=== PATIENT | female | born 1980 | race Caucasian/White ===

== ENCOUNTER 2017-07-08 19:34 | Emergency (ER) | payer BC ==
[2017-07-08 19:45] VITALS: O2SAT 95
[2017-07-08] MEDS ORDERED: NS 1,000 ML IV ONE (19:47)
[2017-07-08] MEDS ORDERED: KETOROLAC 30 MG/1 ML SDV IVP ONE (19:50)
[2017-07-08] MEDS ORDERED: DEXAMETHASONE 10 MG/ML VIAL IVP ONE (19:50)
[2017-07-08] MEDS ORDERED: METOCLOPRAMIDE 10 MG/2 ML VIAL IVP ONE (19:50)
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
[2017-07-08 21:19] VITALS: BP 122/69; PULSE 67; RESP 16; TEMP 98.1
== END 2017-07-08 21:10 | disposition home or self-care (01) ==
LOC: CED 19:34
DX: R51 Headache (principal); E86.9 Volume depletion, unspecified
CPT/HCPCS: 96374; J1100; J1200; J1885; J2765

== ENCOUNTER 2018-07-26 19:55 | Emergency (ER) | payer OTHER ==
[2018-07-26] MEDS ORDERED: METOCLOPRAMIDE 10 MG/2 ML VIAL IVP ONE (20:34)
[2018-07-26] MEDS ORDERED: NS 1,000 ML IV ONE (20:34)
[2018-07-26] MEDS ORDERED: DEXAMETHASONE 10 MG/ML VIAL IVP ONE (20:34)
[2018-07-26] MEDS ORDERED: KETOROLAC 30 MG/1 ML SDV IVP ONE (20:34)
--- NOTE | 2018-07-26 20:57 | EDPHY ---
H & P Time Seen by Provider: 07/26/18 20:04 HPI/ROS: CHIEF COMPLAINT: Headache History by patient HISTORY OF PRESENT ILLNESS: 37-year-old woman with history of chronic migraines presents complaining of ongoing severe migraine headache for the past 10 days. Patient states she has tried all her usual medications including ibuprofen and Excedrin migraine and her preventive medication without relief. It is associated with nausea but no vomiting. It is associated with photophobia. It is similar in nature to her previous migraines. She says she gets these very frequently but usually respond her medications at home, though occasionally she has to go to the ER for them. She is followed by a neurologist for these headaches. REVIEW OF SYSTEMS: As in HPI, and all other systems reviewed and are negative Smoking Status: Never smoked Physical Exam: General Appearance: Alert, nontoxic appearing, lying in a darkened room. Head: normocephalic, atraumatic Eyes: Pupils equal and round, reactive to light, no pallor or injection. Mouth: Mucous membranes moist. Respiratory: Normal, effort, lungs are clear to auscultation. No wheezes, rales or rhonchi. Cardiovascular: Regular rate and rhythm. S1, S2, no murmurs, gallops or rubs appreciated Gastrointestinal: Abdomen is soft and nontender, no masses, bowel sounds normal. Back: No CVA tenderness, no bony tenderness Neurological: Awake, alert and oriented x 3, cranial nerves 2 through 12 intact , no pronator drift, normal gait, DTRs 2+ and equal bilaterally, sensation equal bilaterally Skin: Warm and dry, no rashes. Musculoskeletal: No deformities or tenderness. Extremities: full range of motion, no edema, DP2+ bilat Psychiatric: Patient has normal affect, there is no agitation. Constitutional: Initial Vital Signs Temperature (C) 37.0 C 07/26/18 20:08 Heart Rate 67 07/26/18 20:08 Respiratory Rate 18 07/26/18 20:08 Blood Pressure 114/75 07/26/18 20:08 O2 Sat (%) 99 07/26/18 20:08 O2 Delivery Mode Room Air Allergies/Adverse Reactions: No Known Allergies Allergy (Verified 07/26/18 20:07) Home Medications: Medication Instructions Recorded Lexapro 07/08/17 Trokendi Xr 07/26/18 MDM/Departure - MDM Medications Given: Discontinued Medications Dexamethasone (Decadron Injection) 10 mg IVP EDNOW ONE Stop: 07/26/18 20:35 Last Admin: 07/26/18 20:40 Dose: 10 mg Diphenhydramine HCl (Benadryl Injection) 25 mg IVP EDNOW ONE Stop: 07/26/18 20:35 Last Admin: 07/26/18 20:40 Dose: 25 mg Sodium Chloride (Ns) 1,000 mls @ 0 mls/hr IV ONCE ONE; Wide Open PRN Reason: Protocol Stop: 07/26/18 20:35 Last Admin: 07/26/18 20:40 Dose: 1,000 mls Ketorolac Tromethamine (Toradol) 15 mg IVP EDNOW ONE Stop: 07/26/18 20:35 Last Admin: 07/26/18 20:40 Dose: 15 mg Metoclopramide HCl (Reglan Injection) 10 mg IVP EDNOW ONE Stop: 07/26/18 20:35 Last Admin: 07/26/18 20:40 Dose: 10 mg ED Course/Re-evaluation: 37-year-old woman with history of migraines presents with ongoing typical migraine for her. Patient was given IV fluids, Benadryl Reglan dexamethasone and Toradol with improvement although not complete resolution of her headache. She did feel sleepy desire to go home and sleep in her own bed. Patient was therefore discharged in improved condition. - Depart Disposition: Home, Routine, Self-Care Clinical Impression: Migraine Qualifiers: Migraine type: unspecified Status migrainosus presence: without status migrainosus Intractability: not intractable Qualified Code(s): G43.909 - Migraine, unspecified, not intractable, without status migrainosus Condition: Good Instructions: Migraine Headache (ED) Additional Instructions: You were seen by Dr. Lorna Thomas today. We have treated for migraine headache. Go and get some sleep. Please follow- up with your neurologist as needed. Return for any worsening or new concerns. Referrals: BAKARI MURCIA [Primary Care Provider] - As per Instructions
[2018-07-26 21:29] VITALS: BP 101/52
== END 2018-07-26 21:34 | disposition home or self-care (01) ==
LOC: CED 19:55
DX: G43.909 Migraine, unspecified, not intractable, without status migrainosus (principal); E86.9 Volume depletion, unspecified
CPT/HCPCS: 96374-ER; 96375-ER; 99284-ER; J1100; J1200; J1885; J2765

== ENCOUNTER 2018-10-09 19:38 | Emergency (ER) | payer OTHER ==
[2018-10-09] MEDS ORDERED: NS 1,000 ML IV ONE (19:56)
[2018-10-09] MEDS ORDERED: METOCLOPRAMIDE 10 MG/2 ML VIAL IVP ONE ×2 (19:56→20:51)
[2018-10-09] MEDS ORDERED: KETOROLAC 15 MG/1 ML SDV IVP ONE (19:57)
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
[2018-10-09] MEDS ORDERED: ONDANSETRON 4 MG/2 ML VIAL IVP ONE (21:31)
[2018-10-09 21:51] VITALS: BP 112/70
== END 2018-10-09 21:50 | disposition home or self-care (01) ==
LOC: CED 19:38
DX: G43.909 Migraine, unspecified, not intractable, without status migrainosus (principal); R11.10 Vomiting, unspecified; E86.9 Volume depletion, unspecified
CPT/HCPCS: 96361-ER; 96374-ER; 96375-ER; 96376-ER; 99284-ER; J1200; J1885; J2405; J2765

== ENCOUNTER 2018-12-16 17:29 | Emergency (ER) | payer OTHER | END 2018-12-16 20:07 | disposition home or self-care (01) | LOC: CED 17:29 ==